=== PATIENT | female | born 1955 | race Caucasian/White ===

== ENCOUNTER 2017-09-24 12:22 | Inpatient (IN) | payer MEDICARE ==
[~2017-09-24] VITALS: Ht 172.7 cm; Wt 65.3 kg
[2017-09-24] MEDS ORDERED: methylPREDNISolone SOD SUCC PF 125 MG/2 ML VIAL. IV ONE (12:30)
[2017-09-24] MEDS ORDERED: IPRATRPIUM/ALBUTEROL 0.5/2.5MG 3 ML NEBU. NEB ONE (12:30)
--- NOTE | 2017-09-24 12:38 | PHYS DOC ---
Past Medical History Past Medical History: COPD Smoking: Cigarettes, 1 Pack Per Day Adult General Chief Complaint Chief Complaint: SHORTNESS OF BREATH HPI HPI Patient is a 62 year old female who presents with history of COPD not oxygen dependent recently out of her Valium reports a three-day history of increasing moderately severe shortness of breath and wheezing; denies fever vomiting or diarrhea or dysuria frequency or flank pain. Denies chest pain. Brought in by EMS on CPAP and some Restoril distress. Recently moved here and does not have a primary care physician. Review of Systems Review of Systems Constitutional: Denies fever or chills [] Eyes: Denies change in visual acuity, redness, or eye pain [] HENT: Denies nasal congestion or sore throat [] Respiratory: Denies cough or shortness of breath [] Cardiovascular: No additional information not addressed in HPI [] GI: Denies abdominal pain, nausea, vomiting, bloody stools or diarrhea [] : Denies dysuria or hematuria [] Musculoskeletal: Denies back pain or joint pain [] Integument: Denies rash or skin lesions [] Neurologic: Denies headache, focal weakness or sensory changes [] Endocrine: Denies polyuria or polydipsia [] All other systems were reviewed and found to be within normal limits, except as documented in this note. Current Medications Current Medications Current Medications Medications (Trade) Dose Ordered Sig/Shahid Start Time Stop Time Status Last Admin Dose Admin Albuterol/ Ipratropium (Duoneb) 3 ml 1X ONCE 09/24/17 12:30 09/24/17 12:38 DC 09/24/17 12:36 3 ML Lorazepam (Ativan) 1 mg 1X ONCE 09/24/17 12:30 09/24/17 12:38 DC 09/24/17 12:30 1 MG Methylprednisolone Sodium Succinate (SOLU-Medrol 125MG VIAL) 125 mg 1X ONCE 09/24/17 12:30 09/24/17 12:38 DC 09/24/17 12:30 125 MG Allergies Allergies Allergies Coded Allergies Type Severity Reaction Last Updated Verified No Known Drug Allergies 09/24/17 No Physical Exam Physical Exam Constitutional: Moderate distress, somewhat excessively thin and not well nourished consistent with advanced stage COPD HENT: Normocephalic, atraumatic, bilateral external ears normal, oropharynx moist, no oral exudates, nose normal. [] Eyes: PERRLA, EOMI, conjunctiva normal, no discharge. [] Neck: Normal range of motion, no tenderness, supple, no stridor. [] Cardiovascular:Heart rate regular rhythm, no murmur [] Lungs & Thorax: Bilateral breath sounds clear but quiet to auscultation; with accessory muscle use and slight tripoding [] Abdomen: Bowel sounds normal, soft, no tenderness, no masses, no pulsatile masses. [] Skin: Warm, dry, no erythema, no rash. [] Back: No tenderness, no CVA tenderness. [] Extremities: No tenderness, no cyanosis, no clubbing, ROM intact, no edema. [] Neurologic: Alert and oriented X 3, normal motor function, normal sensory function, no focal deficits noted. [] Psychologic: Affect normal, judgement normal, mood normal. [] Current Patient Data Vital Signs Vital Signs Date Time Temp Pulse Resp B/P (MAP) Pulse Ox O2 Delivery O2 Flow Rate FiO2 09/24/17 12:36 100 BiPAP/CPAP 09/24/17 12:27 98.3 124 28 139/80 (99) 98.3 Lab Values Laboratory Tests Test 09/24/17 12:20 09/24/17 12:57 White Blood Count 4.8 x10^3/uL (4.0-11.0) Red Blood Count 4.91 x10^6/uL (3.50-5.40) Hemoglobin 15.9 g/dL (12.0-15.5) H Hematocrit 48.3 % (36.0-47.0) H Mean Corpuscular Volume 99 fL (79-100) Mean Corpuscular Hemoglobin 32 pg (25-35) Mean Corpuscular Hemoglobin Concent 33 g/dL (31-37) Red Cell Distribution Width 16.8 % (11.5-14.5) H Platelet Count 279 x10^3/uL (140-400) Neutrophils (%) (Auto) 67 % (31-73) Lymphocytes (%) (Auto) 20 % (24-48) L Monocytes (%) (Auto) 12 % (0-9) H Eosinophils (%) (Auto) 0 % (0-3) Basophils (%) (Auto) 0 % (0-3) Neutrophils # (Auto) 3.2 x10^3uL (1.8-7.7) Lymphocytes # (Auto) 1.0 x10^3/uL (1.0-4.8) Monocytes # (Auto) 0.6 x10^3/uL (0.0-1.1) Eosinophils # (Auto) 0.0 x10^3/uL (0.0-0.7) Basophils # (Auto) 0.0 x10^3/uL (0.0-0.2) Sodium Level 143 mmol/L (136-145) Potassium Level 3.2 mmol/L (3.5-5.1) L Chloride Level 102 mmol/L (98-107) Carbon Dioxide Level 36 mmol/L (21-32) H Anion Gap 5 (6-14) L Blood Urea Nitrogen 9 mg/dL (7-20) Creatinine 0.7 mg/dL (0.6-1.0) Estimated GFR (Cockcroft-Gault) 85.4 BUN/Creatinine Ratio 13 (6-20) Glucose Level 117 mg/dL (70-99) H Calcium Level 9.5 mg/dL (8.5-10.1) Total Bilirubin 0.4 mg/dL (0.2-1.0) Aspartate Amino Transferase (AST) 18 U/L (15-37) Alanine Aminotransferase (ALT) 14 U/L (14-59) Alkaline Phosphatase 91 U/L (46-116) Troponin I Quantitative < 0.017 ng/mL (0.000-0.055) Total Protein 8.0 g/dL (6.4-8.2) Albumin 3.4 g/dL (3.4-5.0) Albumin/Globulin Ratio 0.7 (1.0-1.7) L O2 Saturation 98 % (92-99) Arterial Blood pH 7.36 (7.35-7.45) Arterial Blood pCO2 at Patient Temp 65 mmHg (35-46) *H Arterial Blood pO2 at Patient Temp 124 mmHg (65-108) H Arterial Blood HCO3 36 mmol/L (21-28) H Arterial Blood Base Excess 8 mmol/L (-3-3) H FiO2 40 Laboratory Tests 09/24/17 12:20 Laboratory Tests 09/24/17 12:20 EKG EKG EKG sinus tachycardia rate of 113 no STEMI QTC 419 my interpretation[] Radiology/Procedures Radiology/Procedures Chest x-ray[] COPD with hyperinflation no pneumothorax or infiltrate my interpretation Course & Med Decision Making Course & Med Decision Making Pertinent Labs and Imaging studies reviewed. (See chart for details) []Due to respiratory distress although the patient was saturating fine patient was placed on BiPAP on arrival. Given Ativan due to anxiety and concerns for benzo withdrawal, duo nebs to help with breathing and IV steroids. Examination 1:15 PM patient's markedly improved. Plan to try a trial without BiPAP. I discussed the case with the hospitalist Dr. Cruz who agrees to admit the patient. Critical Care time 40 minutes outside of separately billable procedures Patient did do well off of BiPAP prior to transfer to the floor. Dragon Disclaimer Dragon Disclaimer This electronic medical record was generated, in whole or in part, using a voice recognition dictation system. Departure Departure Impression: Primary Impression: Acute respiratory failure Additional Impressions: COPD with exacerbation Withdrawal from diazepam Disposition: 09 ADMITTED INPATIENT Admitting Physician: Other Condition: IMPROVED Problem Qualifiers SOILA RIZO MD Sep 24, 2017 12:38
[2017-09-24 12:45] LABS: BASO % 0 % (0-3); EOS % 0 % (0-3); HEMATOCRIT 48.3 % (36.0-47.0); HEMOGLOBIN 15.9 g/dL (12.0-15.5); LYMPH % 20 % (24-48); MEAN CORPUSCULAR HEMOGLOBIN 32 pg (25-35); MEAN CORPUSCULAR HGB CONC 33 g/dL (31-37); MEAN CORPUSCULAR VOLUME 99 fL (79-100); MONO % 12 % (0-9); NEUT % 67 % (31-73); PLATELET COUNT 279 x10^3/uL (140-400); RED BLOOD COUNT 4.91 x10^6/uL (3.50-5.40); RED CELL DISTRIBUTION WIDTH 16.8 % (11.5-14.5); WHITE BLOOD COUNT 4.8 x10^3/uL (4.0-11.0)
--- NOTE | 2017-09-24 12:50 | RAD ---
AP chest radiograph 09/24/2017 Clinical indication: Cough and COPD Comparison: None. Findings: Cardiac and mistitled silhouettes are within normal limits. There is hyperexpansion of both lungs. There is blunting of the costophrenic angles. No pneumothorax or focal consolidation. Impression: 1. Hyperexpansion of both lungs compatible with known COPD. 2. Blunting of the costophrenic angles which may be due to pleural thickening, however trace pleural effusions cannot be excluded. 3. No consolidated pneumonia.
[2017-09-24 12:56] LABS: CALCIUM 9.5 mg/dL (8.5-10.1); CREATININE 0.7 mg/dL (0.6-1.0); GFR 85.4; POTASSIUM 3.2 mmol/L (3.5-5.1)
[2017-09-24 13:02] LABS: ALBUMIN 3.4 g/dL (3.4-5.0); ALBUMIN/GLOBULIN RATIO 0.7 (1.0-1.7); TOTAL BILIRUBIN 0.4 mg/dL (0.2-1.0)
[2017-09-24 13:06] LABS: PH ABG 7.36 (7.35-7.45)
[2017-09-24 13:07] LABS: ALLEN TEST positive; FIO2 ABG 40; HCO3 ABG 36 mmol/L (21-28); PCO2 ABG 65 mmHg (35-46); PO2 ABG 124 mmHg (65-108); SAT O2 ABG 98 % (92-99)
[2017-09-24] MEDS ORDERED: MORPHINE SULFATE 4 MG/ML DISP.SYRIN. IV PRN (13:45)
[2017-09-24] MEDS ORDERED: ONDANSETRON PF 4 MG/2 ML VIAL. IV PRN (13:45)
--- NOTE | 2017-09-24 13:55 | EKG ---
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
[2017-09-24 16:15] VITALS: BP 120/68
[2017-09-24] MEDS ORDERED: MAG HYDROX/ALUMINUM HYD/SIMETH 30 ML ORAL.SUSP PO PRN (16:15)
[2017-09-24] MEDS ORDERED: ACETAMINOPHEN 650 MG/20.3 ML SOLUTION. PO PRN (16:15)
[2017-09-24] MEDS ORDERED: PROCHLORPERAZINE 10 MG/2 ML VIAL. IV PRN (16:15)
--- NOTE | 2017-09-24 16:45 | HP ---
ADMIT DATE: CHIEF COMPLAINT: Shortness of breath. HISTORY OF PRESENT ILLNESS: The patient is a 62-year-old woman with past medical history of anxiety, as well as musculoskeletal issues status post back surgeries who presented to the Emergency Room on the urging of her family with severe shortness of breath. The patient relates that she actually has had trouble for several weeks to months, especially since she has moved to [place] from her home in [place] to be closer to her family. She relates that she is essentially unable to cook as she gets short of breath even with just walking around. She has tried to manage this on her own, but clearly with little success. She has got short of breath over the past couple of days, and when she woke up this morning to prove herself a cup of coffee, she was so short of breath that she thought she was going to . Her family who happened to be there took her to the ER. She relates that now she is feeling much better but is still not at her baseline. She is now able to speak in full sentences, but appears dyspneic still with oxygen going. She has never been diagnosed with COPD in the past. She has, however, quit smoking 2 days ago from a cold turkey, from her habit of 1-2 packs a day. PAST MEDICAL HISTORY: Anxiety, back surgery and meniscal tear repair in left knee. FAMILY HISTORY: Negative for heart disease. Denies diabetes, hypertension in mother's family. SOCIAL HISTORY: Lives by herself, had been smoking 1-2 packs a day, having quit 2 days ago. Denies any alcohol or drugs. ALLERGIES: No known drug allergies. MEDICATIONS: MAR reconciled. REVIEW OF SYSTEMS: Positive as per HPI. She denies any cough or sputum production. She has, however, copious postnasal drip, especially since she had nasal surgery at 20+ years ago, has not changed recently. Rest of organ system review is negative. PHYSICAL EXAMINATION: VITAL SIGNS: Show a blood pressure of 120/68, heart rate of 103, respiratory rate at 18. She is afebrile. Of note, pulse and respiratory rate at admission was 124 and 28 respectively. GENERAL: This is a 62-year-old, malnourished appearing woman, alert and oriented, in no acute distress. HEENT: Shows no scleral icterus. NECK: Supple, using accessory muscles to breathe. LUNGS: Fairly clear. HEART: Has regular rate and rhythm. ABDOMEN: Positive bowel sounds, soft, nontender. EXTREMITIES: Show no edema. SKIN: Warm, soft and dry. LABORATORY DATA: CBC with a WBC of 4.8, hemoglobin 15.9, MCV of 99, platelets of 279. Chemistries with a BUN and creatinine of 9 and 0.7, potassium at 3.2, CO2 of 36, gap of 5. LFTs within normal. IMAGING: Chest x-ray obtained in the Emergency Room revealed hyperexpansion of both lungs compatible with COPD, blunting of the costophrenic angles, maybe due to pleural thickening versus trace pleural effusions, no pneumonia. ASSESSMENT AND PLAN: The patient is a 62-year-old smoker, presenting with chronic obstructive pulmonary disease exacerbation. She has been started on steroids and inhalers in the Emergency Room with some improvement of her symptoms. We will continue methylprednisolone for today, switching her to p.o. steroids in the morning. DuoNebs will be continued 4 times a day, albuterol p.r.n. She has oxygen going. The patient does have erythrocytosis, which I suspect is secondary to hypoxia. She has never been on oxygen at home. We will continue to monitor and she will probably need a 6-minute walk before discharge to home. The patient has lost approximately 30 pounds since moving here 6 months ago. I suspect this is related to her breathing as well as she is unable to cook and even has trouble sitting down to eat without getting short of breath. We will reevaluate here. She may require rehab before returning home. ALLEN ENNIS MD DR: KYM/nts JOB#: [id number] / [id number] MELANIE
[2017-09-24] MEDS ORDERED: DIAZ5TAB4 PO (16:48)
[2017-09-24] MEDS: POTASSIUM CL 20MEQ-0.45% NACL 1,000 ML IV SCH (17:41)
[2017-09-24 19:40] VITALS: BP 110/64
[2017-09-24] MEDS: diazePAM 5 MG TABLET PO SCH (20:39)
[2017-09-24] MEDS: SENNOSIDES/DOCUSATE 8.6/50MG TABLET. PO SCH (20:39)
[2017-09-24] MEDS: KETOROLAC 15 MG/ML VIAL. IV PRN (20:40)
[2017-09-24] MEDS: ENOXAPARIN 40 MG/0.4 ML SYRINGE. SQ SCH (20:40)
[2017-09-24] MEDS: guaiFENesin/CODEINE 100mg/10mg 5 ML LIQUID PO PRN (23:06)
[2017-09-24] MEDS: methylPREDNISolone SOD SUCC PF 40 MG/ML VIAL. IV SCH (23:06)
[2017-09-24 23:59] VITALS: BP 109/56
[2017-09-25 03:40] VITALS: BP 152/76
[2017-09-25 05:16] LABS: BASO % 0 % (0-3); EOS % 0 % (0-3); HEMATOCRIT 44.6 % (36.0-47.0); HEMOGLOBIN 14.4 g/dL (12.0-15.5); LYMPH # 0.2 x10^3/uL (1.0-4.8); LYMPH % 6 % (24-48); MEAN CORPUSCULAR HEMOGLOBIN 32 pg (25-35); MEAN CORPUSCULAR HGB CONC 32 g/dL (31-37); MEAN CORPUSCULAR VOLUME 99 fL (79-100); MONO % 2 % (0-9); NEUT % 92 % (31-73); PLATELET COUNT 233 x10^3/uL (140-400); RED BLOOD COUNT 4.48 x10^6/uL (3.50-5.40); RED CELL DISTRIBUTION WIDTH 16.6 % (11.5-14.5); WHITE BLOOD COUNT 4.3 x10^3/uL (4.0-11.0)
[2017-09-25 05:51] LABS: ALBUMIN 2.9 g/dL (3.4-5.0); ALBUMIN/GLOBULIN RATIO 0.7 (1.0-1.7); CREATININE 0.7 mg/dL (0.6-1.0); GFR 85.4; POTASSIUM 3.6 mmol/L (3.5-5.1); TOTAL BILIRUBIN 0.3 mg/dL (0.2-1.0)
[2017-09-25] MEDS: methylPREDNISolone SOD SUCC PF 40 MG/ML VIAL. IV SCH ×3 (06:51→22:37)
[2017-09-25] MEDS: KETOROLAC 15 MG/ML VIAL. IV PRN ×3 (06:52→21:04)
[2017-09-25 07:00] VITALS: BP 129/70
[2017-09-25] MEDS ORDERED: predniSONE 20 MG TABLET PO SCH (09:00)
[2017-09-25] MEDS: POTASSIUM CL 20MEQ-0.45% NACL 1,000 ML IV SCH ×2 (09:12→22:38)
[2017-09-25] MEDS: diazePAM 5 MG TABLET PO SCH ×3 (09:13→21:02)
[2017-09-25] MEDS: SENNOSIDES/DOCUSATE 8.6/50MG TABLET. PO SCH ×2 (09:13→21:03)
[2017-09-25] MEDS: guaiFENesin/CODEINE 100mg/10mg 5 ML LIQUID PO PRN ×3 (09:20→21:04)
--- NOTE | 2017-09-25 09:43 | PDOC ---
PROGRESS NOTES Chief Complaint Chief Complaint COPD exacerbation ASSESSMENT AND PLAN: 1. COPD exacerbation: steroids, nebs, suppl O2. pulm consult; d/w Dr Romo 2. Erythrocytosis: suspect 2/2 hypoxia with component of hemoconcentration. at upper normal limit today 3. FTT: by her explanations, most likely due to COPD. OT/PT eval 4. PCM: mild-mod. nutritional supplements History of Present Illness History of Present Illness breathing a little better today. appetite ok. no significant cough Vitals Vitals Vital Signs Date Time Temp Pulse Resp B/P (MAP) Pulse Ox O2 Delivery O2 Flow Rate FiO2 09/25/17 07:00 98.6 89 18 129/70 (89) 96 Nasal Cannula 2.0 98.6 Physical Exam General: Alert, Oriented X3, Cooperative, No acute distress Heart: Regular rate Lungs: Wheezing (occas) Abdomen: Normal bowel sounds, Soft, No tenderness Extremities: No edema Skin: No rashes Labs LABS Laboratory Tests Test 09/24/17 12:20 09/24/17 12:57 09/25/17 04:10 White Blood Count 4.8 x10^3/uL (4.0-11.0) 4.3 x10^3/uL (4.0-11.0) Red Blood Count 4.91 x10^6/uL (3.50-5.40) 4.48 x10^6/uL (3.50-5.40) Hemoglobin 15.9 g/dL (12.0-15.5) 14.4 g/dL (12.0-15.5) Hematocrit 48.3 % (36.0-47.0) 44.6 % (36.0-47.0) Mean Corpuscular Volume 99 fL (79-100) 99 fL (79-100) Mean Corpuscular Hemoglobin 32 pg (25-35) 32 pg (25-35) Mean Corpuscular Hemoglobin Concent 33 g/dL (31-37) 32 g/dL (31-37) Red Cell Distribution Width 16.8 % (11.5-14.5) 16.6 % (11.5-14.5) Platelet Count 279 x10^3/uL (140-400) 233 x10^3/uL (140-400) Neutrophils (%) (Auto) 67 % (31-73) 92 % (31-73) Lymphocytes (%) (Auto) 20 % (24-48) 6 % (24-48) Monocytes (%) (Auto) 12 % (0-9) 2 % (0-9) Eosinophils (%) (Auto) 0 % (0-3) 0 % (0-3) Basophils (%) (Auto) 0 % (0-3) 0 % (0-3) Neutrophils # (Auto) 3.2 x10^3uL (1.8-7.7) 4.0 x10^3uL (1.8-7.7) Lymphocytes # (Auto) 1.0 x10^3/uL (1.0-4.8) 0.2 x10^3/uL (1.0-4.8) Monocytes # (Auto) 0.6 x10^3/uL (0.0-1.1) 0.1 x10^3/uL (0.0-1.1) Eosinophils # (Auto) 0.0 x10^3/uL (0.0-0.7) 0.0 x10^3/uL (0.0-0.7) Basophils # (Auto) 0.0 x10^3/uL (0.0-0.2) 0.0 x10^3/uL (0.0-0.2) Sodium Level 143 mmol/L (136-145) 139 mmol/L (136-145) Potassium Level 3.2 mmol/L (3.5-5.1) 3.6 mmol/L (3.5-5.1) Chloride Level 102 mmol/L (98-107) 100 mmol/L (98-107) Carbon Dioxide Level 36 mmol/L (21-32) 35 mmol/L (21-32) Anion Gap 5 (6-14) 4 (6-14) Blood Urea Nitrogen 9 mg/dL (7-20) 13 mg/dL (7-20) Creatinine 0.7 mg/dL (0.6-1.0) 0.7 mg/dL (0.6-1.0) Estimated GFR (Cockcroft-Gault) 85.4 85.4 BUN/Creatinine Ratio 13 (6-20) 19 (6-20) Glucose Level 117 mg/dL (70-99) 164 mg/dL (70-99) Calcium Level 9.5 mg/dL (8.5-10.1) 9.0 mg/dL (8.5-10.1) Total Bilirubin 0.4 mg/dL (0.2-1.0) 0.3 mg/dL (0.2-1.0) Aspartate Amino Transf (AST/SGOT) 18 U/L (15-37) 15 U/L (15-37) Alanine Aminotransferase (ALT/SGPT) 14 U/L (14-59) 11 U/L (14-59) Alkaline Phosphatase 91 U/L (46-116) 77 U/L (46-116) Troponin I Quantitative < 0.017 ng/mL (0.000-0.055) Total Protein 8.0 g/dL (6.4-8.2) 7.0 g/dL (6.4-8.2) Albumin 3.4 g/dL (3.4-5.0) 2.9 g/dL (3.4-5.0) Albumin/Globulin Ratio 0.7 (1.0-1.7) 0.7 (1.0-1.7) O2 Saturation 98 % (92-99) Arterial Blood pH 7.36 (7.35-7.45) Arterial Blood pCO2 at Patient Temp 65 mmHg (35-46) Arterial Blood pO2 at Patient Temp 124 mmHg (65-108) Arterial Blood HCO3 36 mmol/L (21-28) Arterial Blood Base Excess 8 mmol/L (-3-3) FiO2 40 ALLEN ENNIS MD Sep 25, 2017 09:43
--- NOTE | 2017-09-25 10:44 | CONS ---
DATE OF CONSULTATION: ATTENDING PHYSICIAN: Dr. Cruz. REASON FOR CONSULTATION: Dyspnea, weight loss, COPD and hypoxia. HISTORY OF PRESENT ILLNESS: The patient is a 62-year-old female who has been a smoker since age 27 and still smokes cigarettes 1-1/2 half pack per day. She came to the Emergency Room because of increasing shortness of breath. She has developed a mild cough which has been nonproductive since this morning. No fever, no chills, no chest pains, no headaches. No nausea, vomiting or diarrhea or constipation. No leg edema. The patient has lost about 40 pounds in the last 8 months according to her daughter. She has moved from [place] and now, this is her permanent home, she will be living with her daughter. Chest x-ray shows evidence of emphysema. I have been asked to see her for further evaluation. She is requiring 2 liters of oxygen. Her saturations on current FiO2 is 96%. Arterial blood gases revealed a pH of 7.36, pCO2 65 and pO2 124 on 40% FIO2. PAST MEDICAL HISTORY: Suspected end-stage COPD, back surgery, anxiety disorder. PAST SURGICAL HISTORY: Meniscal tear repair in the left knee. FAMILY HISTORY: Noncontributory to lungs. SOCIAL HISTORY: Lives by herself previously, now will be living with daughter. Smokes 1-1/2 packs per day since age 27. REVIEW OF SYSTEMS: Twelve-point systems obtained, pertinent positives discussed in history of present illness, otherwise noncontributory. All systems that were negative were reviewed as well. MEDICATIONS: All reviewed as listed in the MRAD including IV steroids and cough suppressant. Currently, she is not on scheduled bronchodilators. PHYSICAL EXAMINATION: VITAL SIGNS: Stable, afebrile, pulse ox 96% on 2 liters. HEENT: Sclerae nonicteric. NECK: Supple, no JVD. LUNGS: With poor air entry bilaterally. CARDIOVASCULAR: Regular rate and rhythm. ABDOMEN: Soft, nontender. EXTREMITIES: With no pitting edema. LABORATORY DATA: Reviewed. BUN 13, creatinine 0.7, bicarbonate 35. White cell count 4.3, hemoglobin 14.4 and platelets are 233. IMPRESSION: 1. Acute hypoxic respiratory failure secondary to chronic obstructive pulmonary disease exacerbation. 2. Tobacco use more than 1 pack per day since age 27 and suspect end-stage chronic obstructive pulmonary disease. She has evidence of hypercapnia. ABGs do show a compensated pH. We will do PFTs to assess the severity of lung disease. 3. Unexplained weight loss of 40 pounds in the last 8 months. Could be related to end-stage chronic obstructive pulmonary disease; however, needs further workup but CT chest, abdomen and pelvis. 4. Postnasal drainage. 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 She would benefit from decongestants. RECOMMENDATION: 1. Continue with present oxygen 2 liters. 2. She may need home oxygen. We will do a 6-minute walk test at the time of discharge. 3. Add DuoNeb. 4. Add Pulmicort. 5. IV steroids with taper. 6. CT chest, abdomen and pelvis to rule out any occult malignancy due to unexplained weight loss. 7. Full PFTs. I appreciate the privilege in providing care to the patient. Discussed with Dr. Cruz. We will follow along with you. Discussed with patient's daughter. BEATRICE ALAS MD DR: BRIGETTE/doc JOB#: [id number] / [id number] MELANIE
[2017-09-25 11:00] VITALS: BP 127/62
[2017-09-25] MEDS: BUDESONIDE 0.5 MG/2 ML NEBU. NEB SCH ×2 (12:00→19:59)
[2017-09-25 14:08] LABS: % BASOS 1 % (0-3); PLT ESTIMATE ADEQUATE (ADEQUATE)
[2017-09-25] MEDS: IPRATRPIUM/ALBUTEROL 0.5/2.5MG 3 ML NEBU. NEB SCH ×3 (14:38→19:59)
[2017-09-25 15:00] VITALS: BP 128/66
--- NOTE | 2017-09-25 15:42 | RESP ---
DATE OF SERVICE: 09/25/2017 The patient's FVC was 1.4, which is 38% predicted, FEV1 1.62, which is 21% predicted. FEV1/FVC ratio was severely reduced. There was excellent response to bronchodilator with 29% improvement in FVC and 13% improvement in FEV1. Lung volumes could not be performed. Diffusion capacity was 91% predicted. IMPRESSION: 1. Severe obstructive airway disease with an FEV1 of only 0.62, which is 21% predicted. 2. Excellent response to bronchodilators. 3. Normal diffusion capacity. BEATRICE ALAS MD DR: BRIGETTE/doc JOB#: [id number] / [id number] MELANIE
--- NOTE | 2017-09-25 16:37 | RAD ---
CT chest, abdomen and pelvis without contrast 09/25/2017 Clinical indications: Unexplained 40 pound weight loss. Comparison: None. Technique: Multiple CT images of the chest, abdomen and pelvis are obtained without contrast according to standard protocol. PQRS Compliance Statement: One or more of the following individualized dose reduction techniques were utilized for this examination: 1. Automated exposure control 2. Adjustment of the mA and/or kV according to patient size 3. Use of iterative reconstruction technique Findings: Chest: Heart size is normal without definite pericardial effusion. The thoracic aorta is normal in caliber with mild calcified atheromatous disease. No axillary, mediastinal or obvious hilar lymphadenopathy, though evaluation is limited in the absence of intravenous contrast. There is severe paraseptal and centrilobular emphysema. Scattered areas of pleural-parenchymal scarring throughout both lungs. No pleural effusion or pneumothorax. No suspicious noncalcified pulmonary nodules. There are no destructive osseous lesions. Abdomen and pelvis: Evaluation of the solid abdominal pelvic viscera, lymphadenopathy and vasculature is limited in the absence of intravenous contrast. Unenhanced contours of the liver, spleen, adrenal glands, pancreas and kidneys are grossly unremarkable. Abdominal aorta is normal in caliber with moderate aortoiliac calcified atheromatous disease. Small and large bowel loops are normal in caliber without obstruction. Appendix is not clearly identified, however no secondary findings of appendicitis at the base of the cecum. No abdominal or pelvic free fluid. Mildly distended unopacified urinary bladder unremarkable. Prior hysterectomy with the vaginal cuff unremarkable. No pelvic free fluid. There are no destructive osseous lesions. Impression: Chest: 1. Severe pulmonary emphysema with no suspicious noncalcified pulmonary nodules. 2. No noncontrast evidence of thoracic lymphadenopathy. Abdomen and pelvis: 1. No noncontrast CT evidence of discrete abdominopelvic mass or lymphadenopathy.
[2017-09-25 19:00] VITALS: BP 128/94
[2017-09-25] MEDS ORDERED: diphenhydrAMINE HCL 25 MG CAPSULE PO PRN (20:30)
[2017-09-25] MEDS: ENOXAPARIN 40 MG/0.4 ML SYRINGE. SQ SCH (21:04)
[2017-09-26] VITALS (7 sets, daily range): BP systolic 104–136; BP diastolic 58–77
[2017-09-26] MEDS: KETOROLAC 15 MG/ML VIAL. IV PRN ×2 (04:10→14:48)
[2017-09-26] MEDS: IPRATRPIUM/ALBUTEROL 0.5/2.5MG 3 ML NEBU. NEB SCH ×4 (09:02→19:30)
[2017-09-26] MEDS: BUDESONIDE 0.5 MG/2 ML NEBU. NEB SCH ×2 (09:03→19:30)
--- NOTE | 2017-09-26 09:53 | PDOC ---
PULMONARY PROGRESS NOTES Subjective anxious Vitals Vital Signs Date Time Temp Pulse Resp B/P (MAP) Pulse Ox O2 Delivery O2 Flow Rate FiO2 09/26/17 09:07 95 Nasal Cannula 2.0 09/26/17 07:00 98.8 77 16 136/73 (94) 98.8 General: Alert Lungs: Other (poor air entry) Cardiovascular: S1 Abdomen: Soft Neuro Exam: Alert Extremities: No Edema Skin: Warm Labs Laboratory Tests Test 09/24/17 12:20 09/24/17 12:57 09/25/17 04:10 White Blood Count 4.8 x10^3/uL (4.0-11.0) 4.3 x10^3/uL (4.0-11.0) Red Blood Count 4.91 x10^6/uL (3.50-5.40) 4.48 x10^6/uL (3.50-5.40) Hemoglobin 15.9 g/dL (12.0-15.5) 14.4 g/dL (12.0-15.5) Hematocrit 48.3 % (36.0-47.0) 44.6 % (36.0-47.0) Mean Corpuscular Volume 99 fL (79-100) 99 fL (79-100) Mean Corpuscular Hemoglobin 32 pg (25-35) 32 pg (25-35) Mean Corpuscular Hemoglobin Concent 33 g/dL (31-37) 32 g/dL (31-37) Red Cell Distribution Width 16.8 % (11.5-14.5) 16.6 % (11.5-14.5) Platelet Count 279 x10^3/uL (140-400) 233 x10^3/uL (140-400) Neutrophils (%) (Auto) 67 % (31-73) 92 % (31-73) Lymphocytes (%) (Auto) 20 % (24-48) 6 % (24-48) Monocytes (%) (Auto) 12 % (0-9) 2 % (0-9) Eosinophils (%) (Auto) 0 % (0-3) 0 % (0-3) Basophils (%) (Auto) 0 % (0-3) 0 % (0-3) Neutrophils # (Auto) 3.2 x10^3uL (1.8-7.7) 4.0 x10^3uL (1.8-7.7) Lymphocytes # (Auto) 1.0 x10^3/uL (1.0-4.8) 0.2 x10^3/uL (1.0-4.8) Monocytes # (Auto) 0.6 x10^3/uL (0.0-1.1) 0.1 x10^3/uL (0.0-1.1) Eosinophils # (Auto) 0.0 x10^3/uL (0.0-0.7) 0.0 x10^3/uL (0.0-0.7) Basophils # (Auto) 0.0 x10^3/uL (0.0-0.2) 0.0 x10^3/uL (0.0-0.2) Sodium Level 143 mmol/L (136-145) 139 mmol/L (136-145) Potassium Level 3.2 mmol/L (3.5-5.1) 3.6 mmol/L (3.5-5.1) Chloride Level 102 mmol/L (98-107) 100 mmol/L (98-107) Carbon Dioxide Level 36 mmol/L (21-32) 35 mmol/L (21-32) Anion Gap 5 (6-14) 4 (6-14) Blood Urea Nitrogen 9 mg/dL (7-20) 13 mg/dL (7-20) Creatinine 0.7 mg/dL (0.6-1.0) 0.7 mg/dL (0.6-1.0) Estimated GFR (Cockcroft-Gault) 85.4 85.4 BUN/Creatinine Ratio 13 (6-20) 19 (6-20) Glucose Level 117 mg/dL (70-99) 164 mg/dL (70-99) Calcium Level 9.5 mg/dL (8.5-10.1) 9.0 mg/dL (8.5-10.1) Total Bilirubin 0.4 mg/dL (0.2-1.0) 0.3 mg/dL (0.2-1.0) Aspartate Amino Transf (AST/SGOT) 18 U/L (15-37) 15 U/L (15-37) Alanine Aminotransferase (ALT/SGPT) 14 U/L (14-59) 11 U/L (14-59) Alkaline Phosphatase 91 U/L (46-116) 77 U/L (46-116) Troponin I Quantitative < 0.017 ng/mL (0.000-0.055) Total Protein 8.0 g/dL (6.4-8.2) 7.0 g/dL (6.4-8.2) Albumin 3.4 g/dL (3.4-5.0) 2.9 g/dL (3.4-5.0) Albumin/Globulin Ratio 0.7 (1.0-1.7) 0.7 (1.0-1.7) O2 Saturation 98 % (92-99) Arterial Blood pH 7.36 (7.35-7.45) Arterial Blood pCO2 at Patient Temp 65 mmHg (35-46) Arterial Blood pO2 at Patient Temp 124 mmHg (65-108) Arterial Blood HCO3 36 mmol/L (21-28) Arterial Blood Base Excess 8 mmol/L (-3-3) FiO2 40 Segmented Neutrophils % 89 % (35-66) Band Neutrophils % 4 % (0-9) Lymphocytes % 5 % (24-48) Monocytes % 1 % (0-10) Basophils % 1 % (0-3) Platelet Estimate Adequate (ADEQUATE) Medications Active Scripts Medications Dose Route/Sig Max Daily Dose Days Date Category Diazepam 5 Mg Tablet 5 Mg PO TID 09/24/17 Reported Impression . 1. Acute hypoxic respiratory failure secondary to chronic obstructive pulmonary disease exacerbation. 2. Tobacco use more than 1 pack per day since age 27 and suspect end-stage chronic obstructive pulmonary disease. She has evidence of hypercapnia. ABGs do show a compensated pH. We will do PFTs to assess the severity of lung disease. 3. Unexplained weight loss of 40 pounds in the last 8 months. Could be related to end-stage chronic obstructive pulmonary disease; 4. Postnasal drainage. 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 She would benefit from decongestants. Plan . 1. Continue with present oxygen 2 liters. 2. She may need home oxygen. We will do a 6-minute walk test at the time of discharge. 3. DuoNeb. 4. Pulmicort. 5. IV steroids with taper. 6. CT chest, abdomen and pelvis with no evidence of occult malignancy 7. Full PFTs. 8. wt loss due to end stage COPD BEATRICE ALAS MD Sep 26, 2017 09:53
[2017-09-26] MEDS: FLUTICASONE 50MCG/NASAL SPRAY 16GM BOTTLE. NS SCH (10:36)
[2017-09-26] MEDS: SENNOSIDES/DOCUSATE 8.6/50MG TABLET. PO SCH ×2 (10:38→21:21)
[2017-09-26] MEDS: POTASSIUM CL 20MEQ-0.45% NACL 1,000 ML IV SCH (10:38)
[2017-09-26] MEDS: guaiFENesin/CODEINE 100mg/10mg 5 ML LIQUID PO PRN ×2 (10:38→21:22)
[2017-09-26] MEDS: diazePAM 5 MG TABLET PO SCH ×3 (10:38→21:21)
[2017-09-26] MEDS: predniSONE 20 MG TABLET PO SCH (10:38)
--- NOTE | 2017-09-26 17:35 | PDOC ---
PROGRESS NOTES Chief Complaint Chief Complaint COPD exacerbation ASSESSMENT AND PLAN: 1. COPD exacerbation: steroids, switched to PO, nebs, suppl O2. 6 min walk in AM to determine home O2 needs 2. Chest wall pain: suspect 2/2 cough, poss viral respir syndrome. toradol not working, not tolerant of NSAIDs. trial of [place] 3. Erythrocytosis: suspect 2/2 hypoxia with component of hemoconcentration. at upper normal limit today 4. FTT: by her explanations, most likely due to COPD. CT c/a/p w/o evidence of malignancy. OT/PT rec.s for home with assistance 5. PCM: mild-mod. nutritional supplements 6. Anxiety: start zoloft, cont benzos for now; will need slow taper for decades of use 7. Dispo: prob home in AM with services, O2 History of Present Illness History of Present Illness significant tremor, yelena R hand. breathing much better. pain in bilat ribs, yelena with cough Vitals Vitals Vital Signs Date Time Temp Pulse Resp B/P (MAP) Pulse Ox O2 Delivery O2 Flow Rate FiO2 09/26/17 16:29 Nasal Cannula 2.0 09/26/17 15:00 98.1 85 18 111/58 (75) 99 98.1 Physical Exam General: Alert, Oriented X3, Cooperative, No acute distress Heart: Regular rate Lungs: Clear, Other (poor air entry) Abdomen: Normal bowel sounds, Soft, No tenderness Extremities: No edema Skin: No rashes ALLEN ENNIS MD Sep 26, 2017 17:35
[2017-09-26] MEDS ORDERED: SERTRALINE 25 MG TABLET. PO SCH (21:00)
[2017-09-26] MEDS: HYDROcodone/APAP 5/325MG 1 TAB TABLET PO PRN (21:21)
[2017-09-26] MEDS: ENOXAPARIN 40 MG/0.4 ML SYRINGE. SQ SCH (21:25)
[2017-09-27 03:00] VITALS: BP 134/71
[2017-09-27 07:00] VITALS: BP 144/78
[2017-09-27] MEDS: BUDESONIDE 0.5 MG/2 ML NEBU. NEB SCH (07:53)
[2017-09-27] MEDS: IPRATRPIUM/ALBUTEROL 0.5/2.5MG 3 ML NEBU. NEB SCH ×2 (07:53→11:36)
[2017-09-27] MEDS ORDERED: SERTRALINE 25 MG TABLET. PO SCH (09:00)
[2017-09-27] MEDS: guaiFENesin/CODEINE 100mg/10mg 5 ML LIQUID PO PRN ×2 (09:48→14:13)
[2017-09-27] MEDS: predniSONE 20 MG TABLET PO SCH (09:49)
[2017-09-27] MEDS: SENNOSIDES/DOCUSATE 8.6/50MG TABLET. PO SCH (09:49)
[2017-09-27] MEDS: diazePAM 5 MG TABLET PO SCH ×2 (09:49→14:12)
[2017-09-27] MEDS: HYDROcodone/APAP 5/325MG 1 TAB TABLET PO PRN ×2 (09:49→14:12)
[2017-09-27] MEDS: FLUTICASONE 50MCG/NASAL SPRAY 16GM BOTTLE. NS SCH (09:50)
--- NOTE | 2017-09-27 10:16 | PDOC ---
PULMONARY PROGRESS NOTES Subjective no soa Vitals Vital Signs Date Time Temp Pulse Resp B/P (MAP) Pulse Ox O2 Delivery O2 Flow Rate FiO2 09/27/17 09:49 Room Air 09/27/17 07:55 97 2.0 09/27/17 07:00 98.3 77 16 144/78 (100) 98.3 General: Alert Lungs: Other (poor air entry) Cardiovascular: S1 Abdomen: Soft Neuro Exam: Alert Extremities: No Edema Skin: Warm Medications Active Scripts Medications Dose Route/Sig Max Daily Dose Days Date Category Diazepam 5 Mg Tablet 5 Mg PO TID 09/24/17 Reported Impression . 1. Acute hypoxic respiratory failure secondary to chronic obstructive pulmonary disease exacerbation. 2. Tobacco use more than 1 pack per day since age 27 and suspect end-stage chronic obstructive pulmonary disease. She has evidence of hypercapnia. ABGs do show a compensated pH. We will do PFTs to assess the severity of lung disease. 3. Unexplained weight loss of 40 pounds in the last 8 months. related to end-stage chronic obstructive pulmonary disease; 4. Postnasal drainage. 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 She would benefit from decongestants. Plan . 1. Continue with present oxygen. 2. She will need home oxygen. Per 6-minute walk test 1 litre at rest and 2 litres with exercise 3. DuoNeb. 4. Pulmicort. 5. steroids with taper. 6. CT chest, abdomen and pelvis with no evidence of occult malignancy 7. Full PFTs. 8. ok with dc home BEATRICE ALAS MD Sep 27, 2017 10:16
[2017-09-27 11:00] VITALS: BP 130/67
[2017-09-27] MEDS ORDERED: IPRA3AMP NEB (12:51)
[2017-09-27] MEDS ORDERED: PRED-220 PO (12:51)
[2017-09-27] MEDS ORDERED: DIAZ5TAB4 PO (12:51)
[2017-09-27] MEDS ORDERED: SERT50TA PO (12:51)
[2017-09-27] MEDS ORDERED: FLUT16SP NS (12:51)
[2017-09-27] MEDS ORDERED: guaiFENesin/CODEINE 100mg/10mg PO (12:51)
--- NOTE | 2017-09-27 13:47 | PDOC ---
PROGRESS NOTES Chief Complaint Chief Complaint COPD exacerbation ASSESSMENT AND PLAN: 1. COPD exacerbation: steroids, switched to PO, nebs, suppl O2. 6 min walk with rec for 1L at rest, 2L with exertion. 2. Chest wall pain: suspect 2/2 cough, poss viral respir syndrome. toradol not working, not tolerant of NSAIDs. trial of [place] 3. Erythrocytosis: suspect 2/2 hypoxia with component of hemoconcentration. at upper normal limit today 4. FTT: by her explanations, most likely due to COPD. CT c/a/p w/o evidence of malignancy. OT/PT rec.s for home with assistance 5. PCM: mild-mod. nutritional supplements 6. Anxiety: started zoloft, cont benzos for now; will need slow taper for decades of use 7. Dispo: home with services, suppl O2, [place] History of Present Illness History of Present Illness breathing much better. pain in bilat ribs, yelena with cough Vitals Vitals Vital Signs Date Time Temp Pulse Resp B/P (MAP) Pulse Ox O2 Delivery O2 Flow Rate FiO2 09/27/17 11:37 Nasal Cannula 2.0 09/27/17 11:00 98.2 85 18 130/67 (88) 96 98.2 Physical Exam General: Alert, Oriented X3, Cooperative, No acute distress Heart: Regular rate Lungs: Other (poor air entry) Abdomen: Normal bowel sounds, Soft, No tenderness Extremities: No edema Skin: No rashes ALLEN ENNIS MD Sep 27, 2017 13:47
[2017-09-27] MEDS ORDERED: TEMA15CA PO (15:04)
[2017-09-27] MEDS ORDERED: HYDR-2758 PO (15:04)
[2017-09-27] MEDS ORDERED: SENN-22 PO (15:04)
--- NOTE | 2017-09-28 19:39 | DS ---
DATE OF DISCHARGE: 09/27/2017 CHIEF COMPLAINT: COPD exacerbation. HOSPITAL COURSE: The patient is a 62-year-old woman without previous diagnosis, presenting with signs and symptoms of COPD exacerbation. No pneumonia. She was started on steroids, initially IV, later switched to p.o., nebulizers and O2. Pulmonary consult was obtained. Her symptoms significantly improved, but she was found to be O2 dependent after a 6-minute walk. She was discharged with 1 liter at rest, 2 liters with exertion. She did have left-sided rib pain thought to be secondary to cough, possibly with viral syndrome triggering her COPD. [place] seemed to help her symptoms and she was discharged with script of same. She was found with erythrocytosis, which was suspected to be secondary to hypoxia with component of hemoconcentration. She remained at upper normal limits. No further intervention was undertaken. For her anxiety, she has been chronically on benzodiazepines. After discussion with her and her daughter, she was agreeable to starting Zoloft. Continue on benzos for now with very slow taper as she has been using this for decades. PHYSICAL EXAMINATION: VITAL SIGNS: Blood pressure of 130/67, heart rate of 85, respiratory rate at 18. She is afebrile. GENERAL: Alert and oriented, no acute distress. LUNGS: Clear with decreased breath sounds. HEART: Regular rate and rhythm. ABDOMEN: Positive bowel sounds. EXTREMITIES: No edema. DISCHARGE DIAGNOSES: Chronic obstructive pulmonary disease exacerbation, chest wall pain. DISCHARGE CONDITION: Improved. DISCHARGE DISPOSITION: To home with services and home O2. DISCHARGE MEDICATIONS: Please refer to MAR. DISCHARGE INSTRUCTIONS: The patient will follow up with PCP in 1-[address] Romo from Pulmonology as arranged. ALLEN ENNIS MD DR: KYM/nts JOB#: [id number] / [id number] MELANIE
== END 2017-09-27 16:59 | disposition home health service (06) | DRG 189 ==
LOC: ER 12:22 → 6 SOUTH 13:23
PROVIDERS: ADMIT Internal Medicine Hematology & Oncology; ATTEND Internal Medicine Hematology & Oncology
PROC: 5A09357 Assistance with Respiratory Ventilation, Less than 24 Consecutive Hours, Continuous Positive Airway Pressure (ICD-10-PCS; principal; 2017-09-24)
DX: J96.01 Acute respiratory failure with hypoxia (principal); E44.0 Moderate protein-calorie malnutrition; Z99.81 Dependence on supplemental oxygen; D75.1 Secondary polycythemia; J44.1 Chronic obstructive pulmonary disease with (acute) exacerbation; F19.939 Other psychoactive substance use, unspecified with withdrawal, unspecified; F17.210 Nicotine dependence, cigarettes, uncomplicated; J32.9 Chronic sinusitis, unspecified; F41.9 Anxiety disorder, unspecified; R62.7 Adult failure to thrive; Z79.899 Other long term (current) drug therapy
CPT/HCPCS: 36415; 36600; 71010; 71250; 74176; 80053; 82805; 84484; 85007; 85025; 93005; 94060; 94620; 94640; 94660; 94729; 94760; 96374; 96375; J1650; J1885; J2060; J2920; J2930; J7512; J7620; J7626; Q0163; 97110; 99285-25

== ENCOUNTER 2017-12-24 03:21 | Inpatient (IN) | payer MEDICARE ==
[2017-12-24] MEDS: ALBUTEROL SULFATE 2.5 MG/3 ML NEBU. CONT NEB (03:54)
[2017-12-24] MEDS: methylPREDNISolone SOD SUCC PF 125 MG/2 ML VIAL. IV (04:54)
[2017-12-24 05:08] LABS: ADD MAN DIFF? NO
[2017-12-24 05:10] LABS: BASO # 0.1 x10^3/uL (0.0-0.2); BASO % 1 % (0-3); EOS # 0.3 x10^3/uL (0.0-0.7); EOS % 4 % (0-3); HEMATOCRIT 37.9 % (36.0-47.0); HEMOGLOBIN 12.4 g/dL (12.0-15.5); LYMPH # 0.7 x10^3/uL (1.0-4.8); LYMPH % 11 % (24-48); MEAN CORPUSCULAR HEMOGLOBIN 33 pg (25-35); MEAN CORPUSCULAR HGB CONC 33 g/dL (31-37); MEAN CORPUSCULAR VOLUME 101 fL (79-100); MONO # 0.4 x10^3/uL (0.0-1.1); MONO % 7 % (0-9); NEUT # 5.2 x10^3uL (1.8-7.7); NEUT % 77 % (31-73); PLATELET COUNT 367 x10^3/uL (140-400); RED BLOOD COUNT 3.75 x10^6/uL (3.50-5.40); RED CELL DISTRIBUTION WIDTH 14.8 % (11.5-14.5); WHITE BLOOD COUNT 6.8 x10^3/uL (4.0-11.0)
[2017-12-24 05:22] LABS: ANION GAP 2 (6-14); BLOOD UREA NITROGEN 9 mg/dL (7-20); BUN/CREATININE RATIO 13 (6-20); CALCIUM 9.8 mg/dL (8.5-10.1); CARBON DIOXIDE 38 mmol/L (21-32); CHLORIDE 101 mmol/L (98-107); CREATININE 0.7 mg/dL (0.6-1.0); GFR 85.4; GLUCOSE 133 mg/dL (70-99); SODIUM 141 mmol/L (136-145)
[2017-12-24 05:24] LABS: PARTIAL THROMBOPLASTIN TIME 27 SEC (24-38)
[2017-12-24 05:28] LABS: ALBUMIN 3.6 g/dL (3.4-5.0); ALBUMIN/GLOBULIN RATIO 0.8 (1.0-1.7); ALK PHOS 111 U/L (46-116); ALT (SGPT) 15 U/L (14-59); AST (SGOT) 19 U/L (15-37); MAGNESIUM 2.2 mg/dL (1.8-2.4); TOTAL BILIRUBIN 0.3 mg/dL (0.2-1.0); TOTAL PROTEIN 8.3 g/dL (6.4-8.2)
[2017-12-24 05:30] LABS: TROPONINI < 0.017 ng/mL (0.000-0.055)
[2017-12-24 05:33] LABS: NT-PRO BNP 68 pg/mL (0-124)
[2017-12-24 05:40] LABS: INFLUENZA A PATIENT NEGATIVE (NEGATIVE); INFLUENZA B PATIENT NEGATIVE (NEGATIVE); OBC FLU VALID
[2017-12-24] MEDS: HYDROcodone/APAP 5/325MG 1 TAB TABLET PO ×3 (06:16→20:31)
[2017-12-24] MEDS: AZITHRMYCN 500MG IVPB FOR OMNI 250 ML IV (07:56)
[2017-12-24] MEDS: SERTRALINE 50 MG TABLET. PO ×2 (09:59→10:00)
[2017-12-24] MEDS: diazePAM 5 MG TABLET PO ×3 (09:59→20:21)
[2017-12-24] MEDS: SENNOSIDES/DOCUSATE 8.6/50MG TABLET. PO ×2 (10:00→20:21)
[2017-12-24] MEDS: FLUTICASONE 50MCG/NASAL SPRAY 16GM BOTTLE. NS (10:00)
[2017-12-24] MEDS: IPRATRPIUM/ALBUTEROL 0.5/2.5MG 3 ML NEBU. NEB ×4 (11:07→23:28)
[2017-12-24] MEDS: BUDESONIDE 0.5 MG/2 ML NEBU. NEB ×2 (11:07→19:38)
[2017-12-24] MEDS ORDERED: IPRATRPIUM/ALBUTEROL 0.5/2.5MG 3 ML NEBU. NEB (12:00)
[2017-12-24] MEDS: ONDANSETRON PF 4 MG/2 ML VIAL. IV (13:14)
[2017-12-24] MEDS: LACTOBACILLUS RHAMNOSUS GG 1 CAPSULE. PO (20:21)
[2017-12-24] MEDS: methylPREDNISolone SOD SUCC PF 40 MG/ML VIAL. IV (20:26)
[2017-12-24] MEDS: TEMAZEPAM 15 MG CAPSULE PO (23:15)
[2017-12-25] MEDS: HYDROcodone/APAP 5/325MG 1 TAB TABLET PO ×2 (04:29→11:27)
[2017-12-25] MEDS: guaiFENesin/CODEINE 100mg/10mg 5 ML LIQUID PO ×2 (04:33→22:31)
[2017-12-25 04:48] LABS: ADD MAN DIFF? NO
[2017-12-25 04:55] LABS: BASO % 0 % (0-3); EOS % 0 % (0-3); HEMATOCRIT 32.2 % (36.0-47.0); HEMOGLOBIN 10.8 g/dL (12.0-15.5); LYMPH # 0.6 x10^3/uL (1.0-4.8); LYMPH % 13 % (24-48); MEAN CORPUSCULAR HEMOGLOBIN 34 pg (25-35); MEAN CORPUSCULAR HGB CONC 34 g/dL (31-37); MEAN CORPUSCULAR VOLUME 100 fL (79-100); MONO # 0.2 x10^3/uL (0.0-1.1); MONO % 5 % (0-9); NEUT # 3.6 x10^3uL (1.8-7.7); NEUT % 81 % (31-73); PLATELET COUNT 308 x10^3/uL (140-400); RED BLOOD COUNT 3.21 x10^6/uL (3.50-5.40); RED CELL DISTRIBUTION WIDTH 14.6 % (11.5-14.5); WHITE BLOOD COUNT 4.5 x10^3/uL (4.0-11.0)
[2017-12-25 05:37] LABS: ANION GAP 1 (6-14); BLOOD UREA NITROGEN 17 mg/dL (7-20); CARBON DIOXIDE 39 mmol/L (21-32); CHLORIDE 98 mmol/L (98-107); CREATININE 0.8 mg/dL (0.6-1.0); GFR 73.2; GLUCOSE 134 mg/dL (70-99); POTASSIUM 4.4 mmol/L (3.5-5.1); SODIUM 138 mmol/L (136-145)
[2017-12-25] MEDS: IPRATRPIUM/ALBUTEROL 0.5/2.5MG 3 ML NEBU. NEB ×4 (07:31→18:14)
[2017-12-25] MEDS: BUDESONIDE 0.5 MG/2 ML NEBU. NEB ×2 (07:31→18:15)
[2017-12-25] MEDS: LACTOBACILLUS RHAMNOSUS GG 1 CAPSULE. PO ×2 (09:44→20:38)
[2017-12-25] MEDS: AZITHROMYCIN 250 MG TABLET. PO (09:44)
[2017-12-25] MEDS: SERTRALINE 50 MG TABLET. PO (09:44)
[2017-12-25] MEDS: SENNOSIDES/DOCUSATE 8.6/50MG TABLET. PO ×2 (09:44→21:00)
[2017-12-25] MEDS: diazePAM 5 MG TABLET PO ×3 (09:44→20:38)
[2017-12-25] MEDS: FLUTICASONE 50MCG/NASAL SPRAY 16GM BOTTLE. NS (09:45)
[2017-12-25] MEDS: methylPREDNISolone SOD SUCC PF 40 MG/ML VIAL. IV (09:47)
[2017-12-25] MEDS: cefTRIAXone IV Push 1 GM VIAL. IVP (09:48)
[2017-12-25] MEDS ORDERED: MORPHINE SULFATE 2 MG/ML DISP.SYRIN. IV (13:15)
[2017-12-25] MEDS ORDERED: ONDANSETRON PF 4 MG/2 ML VIAL. IV (13:15)
[2017-12-25] MEDS ORDERED: DOCUSATE SODIUM 100 MG CAPSULE. PO (13:15)
[2017-12-25] MEDS ORDERED: ACETAMINOPHEN 325 MG TABLET. PO (13:15)
[2017-12-25] MEDS ORDERED: hydrALAZINE 20 MG/ML VIAL. IVP (13:15)
[2017-12-25] MEDS: traMADol 50 MG TABLET PO ×2 (14:25→22:31)
[2017-12-25] MEDS ORDERED: ENOXAPARIN 30 MG/0.3 ML SYRINGE. SQ (16:00)
[2017-12-25] MEDS: ENOXAPARIN 40 MG/0.4 ML SYRINGE. SQ (16:39)
[2017-12-25] MEDS: DOXYCYCLINE HYCLATE 100 MG TABLET PO (20:37)
[2017-12-25] MEDS: FAMOTIDINE 20 MG TABLET. PO (20:38)
[2017-12-25] MEDS: TEMAZEPAM 15 MG CAPSULE PO (20:38)
[2017-12-25] MEDS: ALBUTEROL SULFATE 2.5 MG/3 ML NEBU. NEB (22:41)
[2017-12-26 06:28] LABS: ADD MAN DIFF? NO
[2017-12-26 06:55] LABS: BASO # 0.1 x10^3/uL (0.0-0.2); BASO % 2 % (0-3); EOS # 0.1 x10^3/uL (0.0-0.7); EOS % 1 % (0-3); HEMATOCRIT 32.6 % (36.0-47.0); HEMOGLOBIN 11.1 g/dL (12.0-15.5); LYMPH # 2.2 x10^3/uL (1.0-4.8); LYMPH % 39 % (24-48); MEAN CORPUSCULAR HEMOGLOBIN 34 pg (25-35); MEAN CORPUSCULAR HGB CONC 34 g/dL (31-37); MEAN CORPUSCULAR VOLUME 101 fL (79-100); MONO # 0.7 x10^3/uL (0.0-1.1); MONO % 12 % (0-9); NEUT # 2.6 x10^3uL (1.8-7.7); NEUT % 46 % (31-73); PLATELET COUNT 303 x10^3/uL (140-400); RED BLOOD COUNT 3.23 x10^6/uL (3.50-5.40); RED CELL DISTRIBUTION WIDTH 14.8 % (11.5-14.5); WHITE BLOOD COUNT 5.7 x10^3/uL (4.0-11.0)
[2017-12-26 07:09] LABS: ANION GAP 3 (6-14); BLOOD UREA NITROGEN 20 mg/dL (7-20); CALCIUM 8.8 mg/dL (8.5-10.1); CARBON DIOXIDE 38 mmol/L (21-32); CHLORIDE 100 mmol/L (98-107); CREATININE 0.7 mg/dL (0.6-1.0); GFR 85.4; GLUCOSE 92 mg/dL (70-99); POTASSIUM 3.9 mmol/L (3.5-5.1); SODIUM 141 mmol/L (136-145)
[2017-12-26] MEDS: IPRATRPIUM/ALBUTEROL 0.5/2.5MG 3 ML NEBU. NEB ×4 (07:16→19:37)
[2017-12-26] MEDS: BUDESONIDE 0.5 MG/2 ML NEBU. NEB ×2 (07:17→19:37)
[2017-12-26] MEDS: HYDROcodone/APAP 5/325MG 1 TAB TABLET PO ×3 (07:54→20:26)
[2017-12-26] MEDS: guaiFENesin/CODEINE 100mg/10mg 5 ML LIQUID PO (09:24)
[2017-12-26] MEDS: DOXYCYCLINE HYCLATE 100 MG TABLET PO ×2 (09:25→20:24)
[2017-12-26] MEDS: LACTOBACILLUS RHAMNOSUS GG 1 CAPSULE. PO ×2 (09:25→20:24)
[2017-12-26] MEDS: methylPREDNISolone SOD SUCC PF 40 MG/ML VIAL. IV (09:25)
[2017-12-26] MEDS: SENNOSIDES/DOCUSATE 8.6/50MG TABLET. PO ×2 (09:26→20:24)
[2017-12-26] MEDS: SERTRALINE 50 MG TABLET. PO (09:30)
[2017-12-26] MEDS: diazePAM 5 MG TABLET PO ×3 (09:30→20:24)
[2017-12-26] MEDS: FLUTICASONE 50MCG/NASAL SPRAY 16GM BOTTLE. NS (10:07)
[2017-12-26] MEDS: ENOXAPARIN 40 MG/0.4 ML SYRINGE. SQ (16:14)
[2017-12-26] MEDS: PNEUMOC CONJ VACC 23-VALENT 0.5 ML VIAL. VAX IM (16:56)
[2017-12-26] MEDS: FAMOTIDINE 20 MG TABLET. PO (20:24)
[2017-12-26] MEDS: TEMAZEPAM 15 MG CAPSULE PO (20:24)
[2017-12-27] MEDS: HYDROcodone/APAP 5/325MG 1 TAB TABLET PO ×3 (00:32→10:39)
[2017-12-27] MEDS: diazePAM 5 MG TABLET PO ×2 (06:13→13:42)
[2017-12-27] MEDS: IPRATRPIUM/ALBUTEROL 0.5/2.5MG 3 ML NEBU. NEB ×2 (08:23→12:00)
[2017-12-27] MEDS: BUDESONIDE 0.5 MG/2 ML NEBU. NEB (08:24)
[2017-12-27] MEDS: DOXYCYCLINE HYCLATE 100 MG TABLET PO (09:01)
[2017-12-27] MEDS: SENNOSIDES/DOCUSATE 8.6/50MG TABLET. PO (09:01)
[2017-12-27] MEDS: FLUTICASONE 50MCG/NASAL SPRAY 16GM BOTTLE. NS (09:01)
[2017-12-27] MEDS: SERTRALINE 50 MG TABLET. PO (09:01)
[2017-12-27] MEDS: predniSONE 20 MG TABLET PO (09:02)
[2017-12-27] MEDS: LACTOBACILLUS RHAMNOSUS GG 1 CAPSULE. PO (09:04)
[2017-12-27] MEDS: guaiFENesin/CODEINE 100mg/10mg 5 ML LIQUID PO (09:04)
== END 2017-12-27 14:10 | disposition home or self-care (01) | DRG 871 ==
LOC: ER 03:21 → 2 SOUTH 05:10
DX: A41.9 Sepsis, unspecified organism (principal); J96.21 Acute and chronic respiratory failure with hypoxia; Z99.81 Dependence on supplemental oxygen; J96.22 Acute and chronic respiratory failure with hypercapnia; J44.0 Chronic obstructive pulmonary disease with (acute) lower respiratory infection; J44.1 Chronic obstructive pulmonary disease with (acute) exacerbation; F17.210 Nicotine dependence, cigarettes, uncomplicated; F41.9 Anxiety disorder, unspecified; J20.9 Acute bronchitis, unspecified; J34.2 Deviated nasal septum; M54.5 Low back pain; J32.9 Chronic sinusitis, unspecified
CPT/HCPCS: 36415; 70486; 71045; 80048; 80053; 83735; 83880; 84484; 85025; 85610; 85730; 87040; 87804; 87804-59; 90732; 93005; 94618; 94640; 94644; 94760; 96365; 96375; 99285; 99285-25; J0456; J0690; J0696; J1650; J2405; J2920; J2930; J7512; J7613; J7620; J7626; Q0144

== ENCOUNTER 2019-07-17 12:29 | Emergency (ER) | payer MEDICARE ==
[~2019-07-17] VITALS: Ht 170.2 cm; Wt 61.2 kg
[~2019-07-17 12:29] MED LIST: BUDE0.5A3 NEB; DIAZ5TAB4 PO; DOXY100C2 PO; DOXY100T PO; FAMO20TA5 PO; FLUT16SP NS; GUAI600T47 PO; HYDR-2761 PO; IBUP-1007 PO; IPRA3AMP29 NEB; MONT10TA49 PO; PRED-220 PO; PRED20TA PO; SENN-22 PO; SERT50TA PO; TEMA15CA PO; TRAM50TA PO; guaiFENesin/CODEINE 100mg/10mg PO
--- NOTE | 2019-07-17 13:13 | RAD ---
PORTABLE CHEST 1V History: Shortness of breath Comparison: April 22, 2019 Findings: Patchy right lateral basilar opacity. Emphysema. Flattening of the diaphragms. Possible small right pleural effusion. Normal heart size. Impression: 1. Patchy right lateral basilar opacity, may represent pneumonia. Recommend follow-up to ensure resolution. 2. Possible small right pleural effusion. 3. Emphysema. Electronically signed by: Steven Villalta DO (07/17/2019 1:10 PM) [email or web address]
[2019-07-17] MEDS ORDERED: ALPRAZolam 0.5 MG TABLET PO ONE (13:15)
[2019-07-17] MEDS ORDERED: IPRATRPIUM/ALBUTEROL 0.5/2.5MG 3 ML NEBU. NEB ONE (13:15)
[2019-07-17] MEDS ORDERED: methylPREDNISolone SOD SUCC PF 125 MG/2 ML VIAL. IV ONE (13:15)
[2019-07-17 13:30] LABS: BASO # 0.1 x10^3/uL (0.0-0.2); BASO % 0 % (0-3); EOS # 0.1 x10^3/uL (0.0-0.7); EOS % 1 % (0-3); HEMATOCRIT 37.2 % (36.0-47.0); HEMOGLOBIN 12.6 g/dL (12.0-15.5); LYMPH # 0.5 x10^3/uL (1.0-4.8); LYMPH % 3 % (24-48); MEAN CORPUSCULAR HEMOGLOBIN 34 pg (25-35); MEAN CORPUSCULAR HGB CONC 34 g/dL (31-37); MEAN CORPUSCULAR VOLUME 101 fL (79-100); MONO # 1.1 x10^3/uL (0.0-1.1); MONO % 7 % (0-9); NEUT # 14.1 x10^3/uL (1.8-7.7); NEUT % 89 % (31-73); PLATELET COUNT 380 x10^3/uL (140-400); RED CELL DISTRIBUTION WIDTH 13.4 % (11.5-14.5); WHITE BLOOD COUNT 15.8 x10^3/uL (4.0-11.0)
[2019-07-17] MEDS ORDERED: cefTRIAXone IV Push 1 GM VIAL. IVP ONE (13:30)
--- NOTE | 2019-07-17 13:32 | PHYS DOC ---
Past Medical History Past Medical History: Anxiety, COPD Past Surgical History: Hysterectomy Additional Information: 1 PPD Alcohol Use: Occasionally Drug Use: Benzodiazepine Adult General Chief Complaint Chief Complaint: SHORTNESS OF BREATH HPI HPI Patient is a 64 year old female with a history of chronic respiratory failure, COPD, anxiety, current smoker, who presents to the ED today complaining of shortness of breath and coughing up blood that began a couple days ago. Patient states she's noted increased need of her home O2 from 2-1/2 L 2 currently 3-4 L. Denies any fever. She is also complaining of 9 out of 10 chest pain when coughing. Patient appears very anxious Review of Systems Review of Systems Constitutional: Denies fever or chills [] Eyes: Denies change in visual acuity, redness, or eye pain [] HENT: Denies nasal congestion or sore throat [] Respiratory: Reports cough and shortness of breath Cardiovascular: No additional information not addressed in HPI [] GI: Denies abdominal pain, nausea, vomiting, bloody stools or diarrhea [] : Denies dysuria or hematuria [] Musculoskeletal: Denies back pain or joint pain [] Integument: Denies rash or skin lesions [] Neurologic: Denies headache, focal weakness or sensory changes [] All other systems were reviewed and found to be within normal limits, except as documented in this note. Current Medications Current Medications Current Medications Medications (Trade) Dose Ordered Sig/Shahid Start Time Stop Time Status Last Admin Dose Admin Albuterol/ Ipratropium (Duoneb) 3 ml 1X ONCE 07/17/19 13:15 07/17/19 13:16 DC 07/17/19 13:03 3 ML Alprazolam (Xanax) 0.5 mg 1X ONCE 07/17/19 13:15 07/17/19 13:16 DC 07/17/19 13:14 0.5 MG Ceftriaxone Sodium (Rocephin) 1 gm 1X ONCE 07/17/19 13:30 07/17/19 13:36 DC 07/17/19 14:24 1 GM Doxycycline Hyclate (Vibra-Tab) 100 mg 1X ONCE 07/17/19 16:00 07/17/19 16:01 Methylprednisolone Sodium Succinate (SOLU-Medrol 125MG VIAL) 125 mg 1X ONCE 07/17/19 13:15 07/17/19 13:16 DC 07/17/19 13:14 125 MG Allergies Allergies Allergies Coded Allergies Type Severity Reaction Last Updated Verified No Known Drug Allergies 04/27/19 No Physical Exam Physical Exam Constitutional: Well developed, well nourished, no acute distress, non-toxic appearance. [] HENT: Normocephalic, atraumatic, bilateral external ears normal, oropharynx moist, no oral exudates, nose normal. [] Eyes: PERRLA, EOMI, conjunctiva normal, no discharge. [] Neck: Normal range of motion, no tenderness, supple, no stridor. [] Cardiovascular:Heart rate regular rhythm, no murmur [] Lungs & Thorax: Noted for a productive cough with bloody sputum. Chest feels tight very minimal air movement. Abdomen: Bowel sounds normal, soft, no tenderness, no masses, no pulsatile masses. [] Skin: Warm, dry, no erythema, no rash. [] Back: No tenderness, no CVA tenderness. [] Extremities: No tenderness, no cyanosis, no clubbing, ROM intact, no edema. [] Neurologic: Alert and oriented X 3, normal motor function, normal sensory function, no focal deficits noted. [] Psychologic: Patient appears very anxious. Current Patient Data Vital Signs Vital Signs Date Time Temp Pulse Resp B/P (MAP) Pulse Ox O2 Delivery O2 Flow Rate FiO2 07/17/19 14:05 97 4.0 07/17/19 13:03 Nasal Cannula 07/17/19 12:29 99.7 113 20 105/65 (78) 99.7 Lab Values Laboratory Tests Test 07/17/19 13:07 07/17/19 13:55 White Blood Count 15.8 x10^3/uL (4.0-11.0) H Red Blood Count 3.70 x10^6/uL (3.50-5.40) Hemoglobin 12.6 g/dL (12.0-15.5) Hematocrit 37.2 % (36.0-47.0) Mean Corpuscular Volume 101 fL (79-100) H Mean Corpuscular Hemoglobin 34 pg (25-35) Mean Corpuscular Hemoglobin Concent 34 g/dL (31-37) Red Cell Distribution Width 13.4 % (11.5-14.5) Platelet Count 380 x10^3/uL (140-400) Neutrophils (%) (Auto) 89 % (31-73) H Lymphocytes (%) (Auto) 3 % (24-48) L Monocytes (%) (Auto) 7 % (0-9) Eosinophils (%) (Auto) 1 % (0-3) Basophils (%) (Auto) 0 % (0-3) Neutrophils # (Auto) 14.1 x10^3/uL (1.8-7.7) H Lymphocytes # (Auto) 0.5 x10^3/uL (1.0-4.8) L Monocytes # (Auto) 1.1 x10^3/uL (0.0-1.1) Eosinophils # (Auto) 0.1 x10^3/uL (0.0-0.7) Basophils # (Auto) 0.1 x10^3/uL (0.0-0.2) Segmented Neutrophils % 87 % (35-66) H Band Neutrophils % 7 % (0-9) Lymphocytes % 1 % (24-48) L Monocytes % 4 % (0-10) Basophils % 1 % (0-3) Platelet Estimate Adequate (ADEQUATE) Prothrombin Time 14.7 SEC (11.7-14.0) H Prothrombin Time INR 1.2 (0.8-1.1) H Activated Partial Thromboplast Time 28 SEC (24-38) D-Dimer (Marci) 1.28 ug/mlFEU (0.00-0.50) H Sodium Level 141 mmol/L (136-145) Potassium Level 4.0 mmol/L (3.5-5.1) Chloride Level 101 mmol/L (98-107) Carbon Dioxide Level 34 mmol/L (21-32) H Anion Gap 6 (6-14) Blood Urea Nitrogen 9 mg/dL (7-20) Creatinine 0.9 mg/dL (0.6-1.0) Estimated GFR (Cockcroft-Gault) 63.4 BUN/Creatinine Ratio 10 (6-20) Glucose Level 123 mg/dL (70-99) H Lactic Acid Level 1.5 mmol/L (0.4-2.0) Calcium Level 9.7 mg/dL (8.5-10.1) Magnesium Level 2.1 mg/dL (1.8-2.4) Total Bilirubin 0.3 mg/dL (0.2-1.0) Aspartate Amino Transferase (AST) 15 U/L (15-37) Alanine Aminotransferase (ALT) 10 U/L (14-59) L Alkaline Phosphatase 99 U/L (46-116) Creatine Kinase 60 U/L (26-192) Creatine Kinase MB (Mass) 0.7 ng/mL (0.0-3.6) Creatine Kinase MB Relative Index % (0-4) Troponin I Quantitative < 0.017 ng/mL (0.000-0.055) TU-Yjb-[id number]-Type Natriuretic Peptide 103 pg/mL (0-124) Total Protein 8.3 g/dL (6.4-8.2) H Albumin 3.4 g/dL (3.4-5.0) Albumin/Globulin Ratio 0.7 (1.0-1.7) L Thyroid Stimulating Hormone (TSH) 1.882 uIU/mL (0.358-3.74) O2 Saturation 98 % (92-99) Arterial Blood pH 7.37 (7.35-7.45) Arterial Blood pCO2 at Patient Temp 51 mmHg (35-46) H Arterial Blood pO2 at Patient Temp 105 mmHg (65-108) Arterial Blood HCO3 29 mmol/L (21-28) H Arterial Blood Base Excess 3 mmol/L (-3-3) FiO2 36 Laboratory Tests 07/17/19 13:07 Laboratory Tests 07/17/19 13:07 EKG EKG [address] Cazares sinus tachycardia HR 109 no STEMI[] Radiology/Procedures Radiology/Procedures []PROCEDURE: PORTABLE CHEST 1V PORTABLE CHEST 1V History: Shortness of breath Comparison: April 22, 2019 Findings: Patchy right lateral basilar opacity. Emphysema. Flattening of the diaphragms. Possible small right pleural effusion. Normal heart size. Impression: 1. Patchy right lateral basilar opacity, may represent pneumonia. Recommend follow-up to ensure resolution. 2. Possible small right pleural effusion. 3. Emphysema. Electronically signed by: Steven Villalta DO (07/17/2019 1:10 PM) [email or web address] DICTATED and SIGNED BY: STEVEN VILLALTA DO DATE: 07/17/19 1310 Course & Med Decision Making Course & Med Decision Making Pertinent Labs and Imaging studies reviewed. (See chart for details) This is a 64-year-old female patient with history of COPD, chronic respiratory failure, on oxygen presents to the ED today complaining of cough productive in nature with bloody sputum and shortness of breath. Patient is very anxious on arrival to the ED area chest x-ray noted for right lateral pneumonia. CBC with a WBC of 15.8. CMP with no acute findings. Lactic 1.5, temperature 99.7, O2 sats 98% on 3 L of oxygen, heart rate 113 the patient was very anxious on arrival to the ED. The patient was given a DuoNeb treatment and Solu-Medrol. Patient is in no distress. He was given Rocephin IV in the ED. I contacted patient's PCP Dr. Harrison, she states this patient had called the o ffice early today, they had called in a prescription for doxycycline for her, she requested patient to go home and get the doxycycline. Dragon Disclaimer Dragon Disclaimer This electronic medical record was generated, in whole or in part, using a voice recognition dictation system. Departure Departure Impression: Primary Impression: Acute on chronic respiratory failure Additional Impressions: COPD exacerbation Right lower lobe pneumonia Smoking addiction Disposition: 01 HOME, SELF-CARE Condition: STABLE Referrals: GALE BOB MD (PCP) Follow-up as soon as possible Patient Instructions: Chronic Obstructive Pulmonary Disease Exacerbation, [id number], Pneumonia, Adult Additional Instructions: You were evaluated in the emergency room and noted to have pneumonia and COPD exacerbation, consider smoking cessation. 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 Problem Qualifiers Primary Impression: Acute on chronic respiratory failure Respiratory failure complication: unspecified whether with hypoxia or hypercapnia Qualified Codes: J96.20 - Acute and chronic respiratory failure, unspecified whether with hypoxia or hypercapnia Additional Impressions: Right lower lobe pneumonia Pneumonia type: due to unspecified organism Qualified Codes: J18.1 - Lobar pneumonia, unspecified organism KATERIN RENTERIA DATA MINING ANALYST Jul 17, 2019 13:32
[2019-07-17 13:35] LABS: CALCIUM 9.7 mg/dL (8.5-10.1); CREATININE 0.9 mg/dL (0.6-1.0); GFR 63.4
[2019-07-17 13:38] LABS: PROTHROMBIN TIME PATIENT 14.7 SEC (11.7-14.0)
[2019-07-17 13:41] LABS: ALBUMIN 3.4 g/dL (3.4-5.0); ALBUMIN/GLOBULIN RATIO 0.7 (1.0-1.7); MAGNESIUM 2.1 mg/dL (1.8-2.4); TOTAL BILIRUBIN 0.3 mg/dL (0.2-1.0); TOTAL PROTEIN 8.3 g/dL (6.4-8.2)
[2019-07-17 13:43] LABS: D-DIMER 1.28 ug/mlFEU (0.00-0.50)
[2019-07-17 13:51] LABS: CREATINE KINASE 60 U/L (26-192)
[2019-07-17 14:03] LABS: BASE EXCESS ABG 3 mmol/L (-3-3); HCO3 ABG 29 mmol/L (21-28); PCO2 ABG 51 mmHg (35-46); PO2 ABG 105 mmHg (65-108); SAT O2 ABG 98 % (92-99)
[2019-07-17 14:07] LABS: FIO2 ABG 36
[2019-07-17 14:13] LABS: % BANDS 7 % (0-9); % BASOS 1 % (0-3); % LYMPHS 1 % (24-48); % MONOS 4 % (0-10); % SEGS 87 % (35-66)
[2019-07-17 14:19] LABS: PLT ESTIMATE ADEQUATE (ADEQUATE)
[2019-07-17 15:32] VITALS: BP 114/65
--- NOTE | 2019-07-17 15:40 | EKG ---
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
[2019-07-17] MEDS ORDERED: DOXYCYCLINE HYCLATE 100 MG TABLET PO ONE (16:00)
== END 2019-07-17 18:29 | disposition home or self-care (01) ==
LOC: ER 12:29
DX: J96.20 Acute and chronic respiratory failure, unspecified whether with hypoxia or hypercapnia (principal); J18.1 Lobar pneumonia, unspecified organism; J44.1 Chronic obstructive pulmonary disease with (acute) exacerbation; F17.200 Nicotine dependence, unspecified, uncomplicated; Z90.710 Acquired absence of both cervix and uterus
CPT/HCPCS: 36415; 36600; 71045; 80053; 82553; 82805; 83605; 83735; 83880; 84443; 84484; 85007; 85025; 85379; 85610; 85730; 87040; 93005; 94640; 96374; 96375; 99285; J0696; J2930; J7620

== ENCOUNTER → 2019-08-18 | Outpatient (CLI) | payer MEDICARE ==
--- NOTE | 2019-08-18 12:04 | KCIC ---
CHEST PA LATERAL Clinical indications: COPD. Severe left-sided chest pain COMPARISON: July 17, 2019. Findings: Hyperinflation is seen consistent with COPD. The previously seen bibasilar lung infiltrates have resolved. No new lung infiltrate is seen. No pleural effusion or pneumothorax is evident. The heart size, pulmonary vasculature, mediastinum and both chelita are unremarkable. The osseous structures appear intact. Impression: COPD No acute radiographic abnormality is seen. Resolution of bibasilar lung infiltrates seen previously. Electronically signed by: Darryl Gu MD (08/18/2019 12:01 PM) [id number]
== END | disposition home or self-care (01) ==
LOC: KCIC 11:13
PROVIDERS: ATTEND Family Medicine
DX: J44.9 Chronic obstructive pulmonary disease, unspecified (principal)
CPT/HCPCS: 71046

== ENCOUNTER → 2019-08-25 | Outpatient (CLI) | payer MEDICARE ==
--- NOTE | 2019-08-25 12:31 | KCIC ---
CT CHEST WO CONTRAST Indication: COPD, right middle lobe atelectasis, smoker Technique: Noncontrast CT imaging was performed of the chest, multiplanar reconstruction images submitted. One or more of the following individualized dose reduction techniques were utilized for this examination: 1. Automated exposure control 2. Adjustment of the mA and/or kV according to patient size 3. Use of iterative reconstruction technique. Comparison: April 23, 2019; September 25, 2017 Findings: Previously seen infiltrate/atelectasis of the right middle lobe has resolved. There is now somewhat oblong focus of density of the lateral aspect of the right lower lobe closer to the lung base image 54 series 2 about 0.9 cm although internal density measurements more fluidlike about 14 Hounsfield units. There is no dependent pleural fluid. There is a 0.6 cm somewhat irregular appearing focus of nodular density right lower lobe image 45 series 2 not seen previously. There is again severe emphysema with upper zone predominance. Mild likely fibrotic change near the apices is similar. No new significant lymphadenopathy is identified of the chest. Thoracic aortic caliber is within normal limits. There is gallstone present about 1.1 cm. IMPRESSION: 1. Previously seen right middle lobe atelectasis/infiltrate has resolved. There is new focus of irregular appearing nodularity of the right lower lobe, separate focus of oblong density which may be a small focus of fluid. 6-12 month follow-up is recommended as per revised Fleischner guidelines. 2. There is again severe emphysema. 3. There is cholelithiasis. Electronically signed by: Cooper Dalal MD (08/25/2019 12:28 PM) [email or web address]
== END | disposition home or self-care (01) ==
LOC: KCIC CT 08:16
PROVIDERS: ATTEND Internal Medicine Critical Care Medicine
DX: J43.9 Emphysema, unspecified (principal); K80.20 Calculus of gallbladder without cholecystitis without obstruction; I10 Essential (primary) hypertension; F17.200 Nicotine dependence, unspecified, uncomplicated
CPT/HCPCS: 71250